=== PATIENT | male | born 1995 | race Caucasian/White ===

== ENCOUNTER 2023-01-19 11:27 | Emergency (ER) | payer MEDICAID, SELFPAY ==
[2023-01-19 11:29] VITALS: BP 129/88; PULSE 111; RESP 22; TEMP 36.6; O2SAT 96; BMI 29.9
--- NOTE | 2023-01-19 12:05 | EDS_ITS ---
HPI History of Present Illness Chief Complaint: Seizure PFSH PFSH Home Medications aripiprazole 5 mg tablet (Abilify) 5 mg PO BID 01/19/23 [History Last Taken Unknown] atomoxetine 100 mg capsule 100 mg PO DAILY 01/19/23 [History Last Taken Unknown] citalopram 30 mg capsule 60 mg PO .QAM 01/19/23 [History Last Taken Unknown] citalopram 40 mg tablet 40 mg PO QHS 01/19/23 [History Last Taken Unknown] divalproex 500 mg tablet,delayed release (Depakote) 500 mg PO TID 01/19/23 [History Last Taken Unknown] lisdexamfetamine 70 mg capsule (Vyvanse) 70 mg PO DAILY 01/19/23 [History Last Taken Unknown] midazolam 5 mg/spray (0.1 mL) nasal spray (Nayzilam) intranasal PRN seizures 01/19/23 [History Last Taken Unknown] Allergy/AdvReac Type Severity Reaction Status Date / Time penicillin G Allergy Severe Hives Verified 01/19/23 11:34 Surgical History H/O brain surgery Social History Smoking Status: Never smoker EXAM Physical Exam Const Vital Signs: 01/19/23 11:29 Temperature 97.8 F Temperature Source Temporal Pulse Rate 111 H Respiratory Rate 22 H Blood Pressure 129/88 H Blood Pressure Mean 101 Pulse Ox 96 Oxygen Delivery Method Room Air [facility] MDM MDM Narrative Medical decision making narrative: HISTORY OF PRESENT ILLNESS: 27-year-old male here with seizure. Seizure was witnessed by his dad. Typical seizure pattern. Noted lasted 3 to 4 minutes was aborted by intranasal midazolam. Dad states patient is taking Depakote and follows with neurology and recently had medication uptitrated. Patient notes compliance of medication. Denies any headache, fever, recent trauma, cough, urinary complaint, abdominal pain, vomiting, diarrhea or blood loss. REVIEW OF SYSTEMS: Pertinent positives: Seizure Pertinent negatives: Fever, nausea vomiting, neck stiffness, head trauma, focal numbness or weakness. PHYSICAL EXAM: Nursing triage notes reviewed, Vital signs reviewed Constitutional: please see mdm HENT: MMM Eyes: Pupils equal round and reactive to light, Extraocular muscles intact Neck: No stridor, no JVD, full neck ROM Lungs: Clear to auscultation, No wheezing or rales. No increased work of breathing, no conversational dyspnea, no accessory muscle use, no nasal flaring. No respiratory distress noted Heart: Regular rate and rhythm, No murmurs, No rubs and No gallops, 2+ distal pulses (radial, femoral, posterior tibial) in all extremities Abdomen: Soft, there is no tenderness, rigidity, rebound or guarding, no obvious peritoneal signs, no palpable pulsatile abdominal masses, no auscultated abdominal bruit : No CVAT Extremities: No edema Neuro: Alert and oriented x3, neuro exam at baseline, cranial nerves II through XII are intact. No pain with extraocular muscle movement. There is negative test of skew. Normal speech. 5 of 5 strength in upper and lower extremities in flexion extension. Intact sensation to light touch in upper and lower extremity dermatomes. No truncal or extremity ataxia. No dysdiadochokinesia. 2+ reflexes. No meningeal signs. Negative Babinski. NIH of 0 Skin: No rash or lesions noted MEDICAL DECISION MAKING: Chief Complaint: [Seizure External records reviewed: No encounters in our system Factors affecting care: History of epilepsy Social determinants of health: Denies smoking or illicit drug use History obtained from others: The patient's status Consults: none ALL IMAGES (IF OBTAINED) HAVE BEEN PERSONALLY REVIEWED AND INTERPRETED BY MYSELF. MDM Narrative: Patient was hemodynamically stable, tachycardic otherwise afebrile and nontoxic- appearing. There is no meningeal signs. He had no focal neurologic deficits. Seizure not last longer than 5 minutes. He did not have multiple seizures without return to baseline. Is not consistent with status epilepticus. I considered the following differential diagnosis: Epilepsy, hyponatremia, hypoglycemia, infectious etiology that lower seizure threshold, med noncompliance I obtained labs rule out hyponatremia, hypoglycemia or signs of infection. Labs were remarkable for no evidence of hyponatremia, electrolyte disturbance, anion gap. No clear precipitating cause of patient's seizure. Likely exacerbated his underlying epilepsy. There is no sign of status epilepticus. He was seizure-free here in the emergency department. Instructed to follow-up with his neurologist the next billable appointment continue take his antiseizure medications as prescribed. He is instructed not to operate her machinery, drive or swim alone. Patient agreed with plan and agreed to follow-up with the next valve appointment. Strict return precautions were also discussed. The patient and/or family, caregivers express understanding. The patient and/or family, caregivers agrees with the plan. Shared decision making: I will have a discussion with the patient and or visitors regarding risk/benefits of further testing or admission. They will be made aware of of the risk/benefits inherent in this decision they will be given the opportunity to voice understanding. Total critical care time today provided was at least 0 minutes. This excludes separately billable procedures. Critical care time (if documented) is secondary to the patient having high probability of clinically significant/life threatening deterioration in the patient's condition which required my urgent intervention. Lab Data Labs: Laboratory Results - last 24 hr 01/19/23 12:05 WBC 8.0 RBC 4.57 L Hgb 14.2 Hct 43.6 MCV 95.4 H MCH 31.1 MCHC 32.6 RDW Std Deviation 45.5 H RDW Coeff of Sondra 12.9 Plt Count 331 MPV 8.9 Immature Gran % (Auto) 3.500 H Neut % (Auto) 61.3 Lymph % (Auto) 22.5 Alfalfa % (Auto) 9.0 Eos % (Auto) 3.1 Baso % (Auto) 0.6 Absolute Neuts (auto) 4.9 Absolute Lymphs (auto) 1.81 Nucleated RBC % 0 Sodium 135 L Potassium 4.5 Chloride 100 Carbon Dioxide 24.0 Anion Gap 11 BUN 15 Creatinine 1.12 Estim Creat Clear Calc 90.99 Est GFR (MDRD) Af Amer 99 Est GFR (MDRD) Non-Af 82 BUN/Creatinine Ratio 13.4 Glucose 134 H Calcium 9.0 Total Bilirubin 0.30 AST 32 ALT 67 H Alkaline Phosphatase 57 Total Protein 7.7 Albumin 3.9 Globulin 3.8 Albumin/Globulin Ratio 1.0 Discharge Plan Triage Chief Complaint: Seizure ED Provider: Iain Coleman Dx/Rx/DC Orders Clinical Impression: Seizure, History of epilepsy Instructions: ED Seizure, Recurrent (Adult) Prescriptions: No Action aripiprazole [Abilify] 5 mg tablet 5 mg PO BID divalproex [Depakote] 500 mg tablet,delayed release (DR/EC) 500 mg PO TID Vyvanse 70 mg capsule 70 mg PO DAILY atomoxetine 100 mg capsule 100 mg PO DAILY citalopram 30 mg capsule 60 mg PO .QAM citalopram 40 mg tablet 40 mg PO QHS Nayzilam 5 mg/spray (0.1 mL) spray,non-aerosol intranasal PRN (Reason: seizures) Primary Care Provider: Care Physician,No Primary Activity Restrictions/Additional Instructions: Thank you for trusting us with your care today! Please take your prescribed seizure medicine as directed. Please return to the emergency department if your symptoms change or worsen. Specifically develop a seizure that lasts greater than 5 minutes or if you have multiple seizures without return to your baseline neurologic status. Please follow with your neurologist (Dr. Wheeler) For further outpatient evaluation and management. Disposition Disposition: Home, Self Care
[2023-01-19] MEDS: 0.9% Normal Saline 1,000 ML 999 ML IV (12:10)
[2023-01-19 12:13] LABS: Absolute Lymphocyte Count 1.81 X10^3/uL (0.83-4.51); Absolute Neutrophil Count 4.9 X10^3/uL (2.0-7.7); Basophil# 0.05 X10^3/uL; Basophil% 0.6 % (0-1); Eosinophil# 0.25 X10^3/uL; Eosinophils% 3.1 % (0-5); Hematocrit 43.6 % (40-54); Hemoglobin 14.2 g/dL (13.0-16.5); Lymphocyte # 1.81 X10^3/ul (0.83-4.51); Lymphocyte % 22.5 % (19-41); Mean Corp Hgb Conc 32.6 g/dL (32-36); Mean Corpuscular Hgb 31.1 pg (27.0-32.0); Mean Corpuscular Volume 95.4 fL (80-94); Mean Platelet Vol. 8.9 fl (6.2-12.0); Monocyte# 0.72 X10^3/uL; NRBC Flagged by Analyzer 0 % (0-5); Neutrophil # 4.93 X10^3/uL (2.7-7.7); Neutrophil % 61.3 % (47-70); Platelet Count 331 K/mm3 (150-450); RBC Distribution Width CV 12.9 % (11.6-14.6); RBC Distribution Width SD 45.5 fl (35.1-43.9); Red Blood Count 4.57 M/mm3 (4.6-6.2)
[2023-01-19 12:28] LABS: AST(SGOT) 32 U/L (15-37); Alanine Aminotransfer ALT/SGPT 67 U/L (16-61); Albumin, Serum 3.9 g/dL (3.2-5.0); Alkaline Phosphatase 57 U/L (45-117); Anion Gap 11 (5-15); BUN 15 mg/dL (7-18); BUN/Creat Ratio 13.4 RATIO (10-20); Chloride 100 mmol/L (98-107); Creatinine, Serum 1.12 mg/dL (0.70-1.30); EST Glomerular Filtration Rate 82 mL/min (>60); Est Glom Filt Rate - Afr Amer 99 mL/min (>60); Estimated Creatinine Clearance 90.99 ml/min; Globulin 3.8 g/dL (2.2-4.2); Glucose 134 mg/dL (74-106); Potassium 4.5 mmol/L (3.5-5.1); Protein, Total 7.7 g/dL (6.4-8.2); Sodium Level 135 mmol/L (136-145)
[2023-01-19 12:44] VITALS: BP 130/96; PULSE 101; RESP 25; O2SAT 100
== END 2023-01-19 13:00 | disposition home or self-care (01) ==
PROVIDERS: Emergency Provider Emergency Medicine; Visit Provider Emergency Medicine
DX: G40.909 Epilepsy, unspecified, not intractable, without status epilepticus (principal); Z79.899 Other long term (current) drug therapy
CPT/HCPCS: 80053; 85025; 96360; 99285; J7030